=== PATIENT | female | born 1965 | race Caucasian/White ===

== ENCOUNTER 2024-06-25 10:50 | Outpatient (CLI) | payer BC, SELFPAY ==
--- NOTE | ~2024-06-25 | XR_ITS ---
EXAMINATION: XR lumbar spine 6V w bending DATE: 06/25/2024 11:14 INDICATION: Spondylolisthesis with low back pain radiating into the right thigh for several weeks. TECHNIQUE: Standing anteroposterior, lateral in neutral, flexion and extension, bilateral oblique and cone-down lateral lumbosacral views of the lumbar spine were obtained. COMPARISON: None FINDINGS: 14 degrees lumbar dextroscoliosis. Sagittal alignment is normal. Vertebral body heights are normal. M oderate to severe disc height loss at L1-L2 and L3-L4, moderate disc height loss at L4-5 and mild dis c height loss at L5-S1, L2-L3 and multiple levels in the visualized lower thoracic spine. No pars int erarticularis defects. There is multilevel moderate to severe lower lumbar predominant facet osteoart hritis. 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 A couple 1.5 cm calcified gallstones in the right upper quadrant. Partially visualized left total hip arthroplasty. Visualized lung bases ar e clear with no pleural effusion. Heart size is normal. IMPRESSION: 1. Mild lumbar dextroscoliosis with moderate to severe spondylosis. 2. Cholelithiasis. Reviewed, dictated and finalized at location A. [employer]
== END 2024-06-25 10:51 | disposition home or self-care (01) ==
PROVIDERS: PCP Physician Assistant; Visit Provider Physician Assistant
DX: M43.10 Spondylolisthesis, site unspecified (principal); M47.896 Other spondylosis, lumbar region; K80.20 Calculus of gallbladder without cholecystitis without obstruction
CPT/HCPCS: 72114